=== PATIENT | male | born 1970 | race Two or more races ===

== ENCOUNTER 2020-08-24 17:35 | Emergency (ER) | payer OTHER ==
[~2020-08-24] VITALS: Ht 182.9 cm; Wt 69.5 kg
--- NOTE | 2020-08-24 19:25 | NUR ---
ASSUMED CARE OF DAVE. NO ACUTE DISTRESS NOTED. VS STABLE. FAMILY AT BEDSIDE. WILL CONTINUE TO MONITOR.
--- NOTE | 2020-08-24 19:59 | NUR ---
PT RESTING IN ROOM. NO ACUTE DISTRESS NOTED. CALL LIGHT IN PLACE. WILL CONTINUE TO MONITOR.
--- NOTE | 2020-08-24 20:18 | NUR ---
MICAH WHITLEY IN ROOM
[2020-08-24] MEDS ORDERED: HYDROcodone/APAP 10/325 MG TABLET ONE (20:23)
[2020-08-24] MEDS ORDERED: HYDROcodone/APAP 10/325 MG TABLET PO ONE (20:30)
--- NOTE | 2020-08-24 21:35 | NUR ---
splint on. vs stable. pt has been updated by MICAH Parks. pt ready for DC.
[2020-08-24 21:56] VITALS: BP 102/50
== END 2020-08-24 22:01 | disposition home or self-care (01) ==
LOC: ED 20:48
DX: S62.643A Nondisplaced fracture of proximal phalanx of left middle finger, initial encounter for closed fracture (principal); S62.353A Nondisplaced fracture of shaft of third metacarpal bone, left hand, initial encounter for closed fracture; W18.00XA Striking against unspecified object with subsequent fall, initial encounter; Y93.89 Activity, other specified; Y92.39 Other specified sports and athletic area as the place of occurrence of the external cause; Y99.8 Other external cause status
CPT/HCPCS: 29125; 99285

== ENCOUNTER 2021-02-09 07:23 | Outpatient (CLI) | payer OTHER ==
[2021-02-09] MEDS ORDERED: ALBUTEROL HFA INH (08:11)
[2021-02-09 08:18] LABS: MICROSCOPIC NOT IND
[2021-02-09 08:20] LABS: BASOPHILS % (AUTO) 1 % (0-1); EOSINOPHILS % (AUTO) 5 % (1-7); LYMPHOCYTES % (AUTO) 30 % (22-44); MEAN CORPUSCULAR HEMOGLOBIN 30.7 pg (27.5-34.5); MEAN CORPUSCULAR HGB CONC 33.5 g/dL (33.2-36.2); MEAN PLATELET VOLUME 7.7 fL (7.4-10.4); MONOCYTES % (AUTO) 8 % (2-9); NEUTROPHILS % (AUTO) 57 % (42-75); PLATELET COUNT 269 x10^3/uL (130-400); RED BLOOD COUNT 4.54 x10^6/uL (4.38-5.82); RED CELL DISTRIBUTION WIDTH 13.8 % (9.4-14.8)
[2021-02-09 08:23] LABS: ANION GAP 5 mmol/L (5-15); CALCIUM 8.4 mg/dL (8.5-10.1); CHLORIDE 105 mmol/L (98-107); CREATININE 0.93 mg/dL (0.7-1.3)
[2021-02-09 08:26] LABS: INTERNATIONAL NORMALIZED RATIO 1.06 (0.93-1.1); PROTHROMBIN TIME 11.3 Seconds (9.6-11.5)
== END 2021-02-09 23:59 | disposition home or self-care (01) ==
LOC: STAR 07:23
PROVIDERS: ATTEND Urology
DX: Z01.818 Encounter for other preprocedural examination (principal); N43.40 Spermatocele of epididymis, unspecified
CPT/HCPCS: 36415; 80048; 81003; 85025; 85610; 87086

== ENCOUNTER 2021-02-18 11:42 | Day surgery (SDC) | payer OTHER ==
[~2021-02-18] VITALS: Ht 182.9 cm; Wt 67.7 kg
[~2021-02-18 11:42] MED LIST: ACETAMINOPHEN 325 MG TABLET PO PRN; ALBUTEROL HFA INH; EPHEDRINE 50 MG/ML, 1ML IVPush PRN; FENTANYL PF 100 MCG/2ML IV PRN; HYDROmorphone 1 MG/ML, 1ML INJ IVPush PRN; LABETALOL 5MG/ML, 20ML IV PRN; MEPERIDINE/PF 25MG/0.5ML IVPush PRN; ONDANSETRON 2MG/ML, 2ML IVPush PRN; OXYcodone 5 MG/5 ML ORAL.SOL UDC PO PRN; PROMETHAZINE 25 MG/ML, 1ML IVPush PRN; hydrALAzine 20 MG/ML, 1ML IV PRN
[2021-02-18 12:08] VITALS: BP 103/68
[2021-02-18] MEDS ORDERED: CHLORHEXIDINE 15 ML UDC ONE (12:14)
[2021-02-18] MEDS ORDERED: LIDOCAINE-MPF 1%, 2ML ONE (12:14)
[2021-02-18] MEDS ORDERED: LACTATED RINGERS 1,000 ML IV SCH (12:30)
[2021-02-18] MEDS ORDERED: CHLORHEXIDINE 15 ML UDC PO ONE (12:30)
[2021-02-18] MEDS ORDERED: LIDOCAINE-MPF 1%, 2ML INFIL ONE (12:30)
[2021-02-18] MEDS ORDERED: BUPIVACAINE/PF 0.25% ONE (12:51)
[2021-02-18] MEDS ORDERED: MIDAZOLAM 1 MG/ML, 2ML ONE (13:02)
[2021-02-18] MEDS ORDERED: FENTANYL PF 250 MCG/5ML ONE (13:02)
[2021-02-18] MEDS ORDERED: NEOSPORIN OINT, 15GM ONE (13:06)
[2021-02-18] MEDS ORDERED: KETOROLAC 30 MG/1 ML ONE ×2 (13:30→13:31)
[2021-02-18] MEDS ORDERED: SUCCINYLCHOLINE 20 MG/ML, 10ML ONE (13:31)
[2021-02-18] MEDS ORDERED: CEFAZOLIN 1,000 MG ONE (13:31)
[2021-02-18] MEDS ORDERED: ONDANSETRON 2MG/ML, 2ML ONE (13:31)
[2021-02-18] MEDS ORDERED: PROPOFOL 10 MG/ML, 20ML ONE (13:31)
[2021-02-18] MEDS ORDERED: DEXAMETHASONE 4 MG/ML, 1ML ONE (13:31)
== END 2021-02-18 16:20 | disposition home or self-care (01) ==
LOC: OUT 11:42
PROVIDERS: ATTEND Urology
DX: N43.40 Spermatocele of epididymis, unspecified (principal); N50.89 Other specified disorders of the male genital organs; J45.909 Unspecified asthma, uncomplicated; Z88.5 Allergy status to narcotic agent; Z98.890 Other specified postprocedural states; Z72.89 Other problems related to lifestyle; Z87.891 Personal history of nicotine dependence; Z20.822 Contact with and (suspected) exposure to COVID-19
CPT/HCPCS: 54840; 87635; 88304; J0330; J0690; J1100; J1885; J2250; J2405; J2704; J3010; J7120